=== PATIENT | male | born 1965 | race Caucasian/White ===

== ENCOUNTER 2016-05-04 11:05 | Emergency (ER) | payer OTHER ==
[~2016-05-04] VITALS: Ht 188 cm; Wt 113.6 kg
[2016-05-04 11:34] VITALS: BP 144/73; PULSE 97; RESP 18; O2SAT 98
--- NOTE | 2016-05-04 12:10 | ED.REPORT ---
HPI-Overdose/Alcohol Toxicity Date of Service May 04, 2016 ED Provider: Tommy Morgan MD 50 year old male with a history of alcoholism and HTN presents to the ER accompanied by his requesting assistance with alcohol rehabilitation. Last drink was about 1.5 hours prior to arrival in the department. Currently he drinks about 0.5 gallons of vodka daily. In the past week he admits to vomiting hellen blood, and black coffee grounds emesis. He has been vomiting today, but denies any presence of blood. Patient denies seizures with alcohol withdrawal, and any abuse of other substances. He recently had bariatric surgery. reports that she has contacted a treatment center in [place], [place] where family would like him to be placed, but they require medical clearance prior to admission. Nursing Notes Stated Complaint: SUBSTANCE ABUSE Chief Complaint: Substance Abuse Nursing Notes Reviewed: Yes Allergies: Coded Allergies: No Known Allergies (Unverified , 05/04/16) General Time Seen by Provider: 12:08 Chief Complaint Other (Alcohol Abuse) Hx Obtained From: Patient, Spouse Arrived By: Walk-in Associated with: Reports: Vomiting Related History: Reports: Alcoholism, Detox treatment Similar Sx Previous: Yes Risk-Overdose/Alcohol Tox )( Suicide Risk Stratification : Alcohol use RF Statements: Risk factors reviewed Past Medical History Past Medical History Heart murmur Reports: Hypertension, Denies: Diabetes mellitus Past Surgical History Reports: Back/neck surgery Smoking History Current Every Day Smoker Social History Alcohol Use: >5 per day Drug Use: Denies drug use Other Social History: Good social support, Ambulatory Status Independent Review of Systems Respiratory: Denies: Shortness of breath Cardiovascular: Denies: Chest pain GI: Reports: Hematemesis, Nausea, Vomiting, Denies: Bloody/tarry stool Neurologic: Reports: Shaking Complete sys rev & neg: except as marked. Physical Exam Initial Vital Signs Vital Signs (First) Date Time Temp Pulse Resp B/P Pulse Ox O2 Delivery O2 Flow Rate FiO2 05/04/16 11:34 36.4 97 18 144/73 98 Room Air Initial VS: Reviewed Head / Eyes: Atraumatic, Normocephalic Neck: Supple, Non-tender, Full range of motion Extremities: Vascular intact, Neuro intact, No swelling, No tenderness Skin: Warm, Dry, No cyanosis General/Constitutional: Awake, Alert, Well developed, Well nourished Smells of EtOH Respiratory / Chest: Atraumatic, Breath sounds NL, Breath sounds = bilat, No respiratory distress, No rales, No rhonchi, No wheezing Cardiovascular: Heart rate NL, Regular rhythm, Heart sounds NL, Cap refill not delayed, Peripheral circulation NL Abdomen: Atraumatic, Soft, No guarding, No rebound Tenderness/Guarding/Rebound: Positive: Tender diffuse Neurologic: Oriented X3, Speech NL, No motor deficits, No sensory deficits Psychiatric: Affect NL, Mood NL, Cognitive function NL, Thought content NL Interpretation & Diagnostics Lab Results Interpretation Result Diagram: 05/04/16 1255 05/04/16 1255 Test 05/04/16 12:00 05/04/16 12:55 Hold Urine Received (Received) White Blood Count 4.5th/mm3 (3.8-10.1) Red Blood Count 4.96mil/mm3 (4.40-5.80) Hemoglobin 16.4g/dL (13.8-17.2) Hematocrit 46.4% (41.0-50.0) Mean Corpuscular Volume 93.5fL (81-100) Mean Corpuscular Hemoglobin 33.1pg (27.0-35.0) Mean Corpuscular Hemoglobin Concent 35.3% (32.0-37.0) Red Cell Distribution Width 12.5% (12.3-15.4) Platelet Count 98bil/L (150-400) Neutrophils (%) (Auto) 49.9% (40-74) Lymphocytes (%) (Auto) 33.6% (14-46) Monocytes (%) (Auto) 13.4% (4-12) Eosinophils (%) (Auto) 2.0% (0-5) Basophils (%) (Auto) 0.9% (0-3) Prothrombin Time 9.9sec (8.1-12.5) Prothromb Time International Ratio 0.93ratio Sodium Level 137mEq/L (134-144) Potassium Level 3.8mEq/L (3.5-5.2) Chloride Level 94mEq/L (97-108) Carbon Dioxide Level 18mmol/L (18-29) Blood Urea Nitrogen 10mg/dL (6-24) Creatinine 0.56mg/dL (0.76-1.27) Estimat Glomerular Filtration Rate 164mL/min (>59) Glucose Level 130mg/dL (60-99) Calcium Level 9.1mg/dL (8.5-10.1) Total Bilirubin 1.1mg/dL (0.0-1.2) Aspartate Amino Transf (AST/SGOT) 211U/L (0-50) Alanine Aminotransferase (ALT/SGPT) 86U/L (0-44) Alkaline Phosphatase 85U/L (25-150) Total Protein 7.6g/dL (6.4-8.4) Albumin 4.6g/dL (3.4-5.0) Hold Heredia Top Tube Received (Received) Re-Eval/Medical Decision Med Decision/Clinical Course Awaiting chemical dependency evaluation here in the emergency department. Source of Hx: Old records Re-Evaluation/Progress #1: Time of Eval: 12:45 Re-Evaluation/Progress Note: Discussed plan of care with patient and . Re-Evaluation/Progress #2: Re-Evaluation/Progress Note: Discussed lab results and plan to discharge. Patient is amenable to the plan. Return precautions given. All other questions addressed. Counseled Regarding: Diagnosis, Lab results, Need for follow-up, When/why to return to ED Discharge & Departure Impression: Primary Impression: Alcohol abuse Additional Impression: Alcohol intoxication Complication of substance-induced condition: uncomplicated Qualified Code: F10.120 - Alcohol abuse with intoxication, uncomplicated )( Condition at Discharge: No danger to self, No danger to others, No suicidal ideation, No homicidal ideation Discharge Condition All VS Reviewed: Yes Condition: Stable Patient Instructions: Abuse of Alcohol (DC), Alcohol Withdrawal (DC) Care Transferred to: [facility] Transferred at: 15:06 Asif Attestation Portions of this note were transcribed by Aleksandar Aguilar. I, Dr. Morgan, personally performed the history, physical exam and medical decision-making; I reviewed and confirmed the accuracy of the information in the transcribed note. Signed by: Asif Cordoba, 05/04/2016 and 12:47 Tommy Morgan MD May 04, 2016 12:10 ALEKSANDAR AGUILAR May 04, 2016 12:12
[2016-05-04] MEDS ORDERED: LORazepam 2 mg Tablet PO ONE ×4 (12:45→21:35)
[2016-05-04 13:02] LABS: BASOPHILS % (AUTO) 0.9 % (0-3); MONOCYTES % (AUTO) 13.4 % (4-12); Mean Corpuscular Hemoglobin 33.1 pg (27.0-35.0); Mean Corpuscular Volume 93.5 fL (81-100); NEUTROPHILS % (AUTO) 49.9 % (40-74); Platelet Count 98 bil/L (150-400)
[2016-05-04 13:16] LABS: INR 0.93 ratio
[2016-05-04 18:59] VITALS: BP 152/80; PULSE 119; RESP 18; O2SAT 97
[2016-05-04 20:04] VITALS: BP 130/68; PULSE 104; RESP 18; O2SAT 94
[2016-05-04] MEDS ORDERED: _LORazepam 2 MG Tablet PO SCH (20:25)
[2016-05-04 21:35] VITALS: BP 144/84; PULSE 111; RESP 18; O2SAT 97
== END 2016-05-04 21:28 | disposition home or self-care (01) ==
LOC: SED 11:05
DX: F10.120 Alcohol abuse with intoxication, uncomplicated (principal); I10 Essential (primary) hypertension; F17.200 Nicotine dependence, unspecified, uncomplicated

== ENCOUNTER 2016-05-06 08:30 | Inpatient (IN) | payer OTHER ==
[~2016-05-06] VITALS: Ht 188 cm; Wt 100.0 kg
[2016-05-06] VITALS (9 sets, daily range): BP systolic 131–168; BP diastolic 66–86; PULSE 78–137; RESP 15–18; O2SAT 95–97
--- NOTE | 2016-05-06 08:57 | ED.REPORT ---
HPI-General Illness Date of Service May 06, 2016 ED Provider: Ambrosio Bowen MD The patient is a 50 year old male with history of hypertension and alcohol abuse , who presents to the emergency department from [facility] for high blood pressure. At this time he complains of anxiety, nausea, and diaphoresis. He also reports he has not been able to sleep the last few nights. He is currently at [facility] for alcohol detox. His last drink was 3 days ago before going to [facility] resp[facility]. His last dose of withdrawal medication was around 0500 this morning. His drinking started to get worse after his left him a few months ago. He has not been hospitalized in the past for alcohol withdrawal. Nursing Notes Stated Complaint: HIGH BP Chief Complaint: General Complaint Nursing Notes Reviewed: Yes (Compare And Share not reconciled) Allergies: Coded Allergies: No Known Allergies (Unverified , 05/04/16) Scheduled 5-Hydroxytryptophan (5-Htp) 50 Mg Capsule 50 MG PO DAILY Ferrous Sulfate, Dried (Iron) 159 Mg Tablet.er 159 MG PO DAILY Multivitamin (Multivitamins) 1 Each Capsule 1 EACH PO DAILY Potassium Gluconate (Potassium) 99 Mg Tablet 99 MG PO DAILY General Time Seen by MD: 08:54 Chief Complaint Other (high blood pressure) Hx Obtained From: Patient Arrived By: Walk-in Sudden in Onset?: Yes Onset Occurred: 1 - 4 hours ago Symptom Duration: Since onset Severity: Current: No pain currently Severity: Maximum: No pain Recent Healthcare: No recent hospitalization, Recent doctor visit Similar Sx Previous: Yes Past Medical History Past Medical History Notes: Patient seen May 04, 2016 in emergency department for detox from alcohol Past Medical History Heart murmur Hypertension Past Surgical History Stomach surgery Reports: Back/neck surgery Family History Noncontributory Smoking History Current Every Day Smoker Social History Currently at [facility] respite Alcohol Use: >5 per day Drug Use: Denies drug use Other Social History: Good social support, , Local resident Ambulatory Status Independent Review of Systems +high blood pressure Full Review of Systems GI: Reports: Nausea Skin: Reports Diaphoresis Psychiatric: Reports: Anxiety, Insomnia Complete sys rev & neg: except as marked. Physical Exam Vital Signs Vital Signs Date Time Temp Pulse Resp B/P Pulse Ox O2 Delivery O2 Flow Rate FiO2 05/06/16 10:45 103 15 145/71 96 Nasal Cannula 2 05/06/16 10:14 103 17 148/66 95 Nasal Cannula 2 05/06/16 08:34 36.4 137 18 168/86 97 Room Air Initial VS: Reviewed, Vital signs abnormal Head / Eyes: Atraumatic, Normocephalic, PERRL ENT: Mucous membranes moist, Conjunctiva normal, No scleral icterus Neck: Supple, Non-tender, Full range of motion Respiratory: Breath sounds normal, Clear to auscultation, No respiratory distress Abdomen / GI: Soft, Non-tender, No guarding, No rebound, No distention Lymphatic: No lymphadenopathy Extremities: Vascular intact, Neuro intact, No swelling, No tenderness Psychiatric: Mood/affect normal, Behavior normal, Normal thought content General/Constitutional: Awake, Alert, Cooperative answering questions, appears to be in significant withdrawal. Cardiovascular: Regular rhythm, Heart sounds NL, No murmurs, No rubs Profound tachycardia in the 130s Skin: Color NL, No rash Color / Condition: Positive: Diaphoresis present Neurologic: Oriented X3, Speech NL Tremulous Interpretation & Diagnostics Lab Results Interpretation Result Diagram: 05/06/16 0920 05/06/16 0920 Test 05/06/16 09:20 White Blood Count 4.7th/mm3 (3.8-10.1) Red Blood Count 4.59mil/mm3 (4.40-5.80) Hemoglobin 15.3g/dL (13.8-17.2) Hematocrit 43.2% (41.0-50.0) Mean Corpuscular Volume 94.1fL (81-100) Mean Corpuscular Hemoglobin 33.3pg (27.0-35.0) Mean Corpuscular Hemoglobin Concent 35.4% (32.0-37.0) Red Cell Distribution Width 12.3% (12.3-15.4) Platelet Count 81bil/L (150-400) Neutrophils (%) (Auto) 64.6% (40-74) Lymphocytes (%) (Auto) 17.1% (14-46) Monocytes (%) (Auto) 16.2% (4-12) Eosinophils (%) (Auto) 1.5% (0-5) Basophils (%) (Auto) 0.4% (0-3) Prothrombin Time 10.8sec (8.1-12.5) Prothromb Time International Ratio 1.01ratio Sodium Level 133mEq/L (134-144) Potassium Level 3.2mEq/L (3.5-5.2) Chloride Level 92mEq/L (97-108) Carbon Dioxide Level 19mmol/L (18-29) Blood Urea Nitrogen 15mg/dL (6-24) Creatinine 0.81mg/dL (0.76-1.27) Estimat Glomerular Filtration Rate 107mL/min (>59) Glucose Level 153mg/dL (60-99) Calcium Level 9.5mg/dL (8.5-10.1) Phosphorus Level 3.3mg/dL (2.5-4.9) Magnesium Level 1.6mg/dL (1.6-2.6) Iron Level 51ug/dL (35-150) Total Iron Binding Capacity 210ug/dL (250-450) Percent Iron Saturation 24%sat (15-50) Unsaturated Iron Binding 159.0ug/dL Ferritin 2361ng/mL (30-400) Total Bilirubin 1.6mg/dL (0.0-1.2) Aspartate Amino Transf (AST/SGOT) 260U/L (0-50) Alanine Aminotransferase (ALT/SGPT) 121U/L (0-44) Alkaline Phosphatase 83U/L (25-150) Total Protein 6.7g/dL (6.4-8.4) Albumin 4.1g/dL (3.4-5.0) Alcohols < 10mg/dL (0-10) Lab Results Interpretation: She thrombocytopenia from chronic alcoholism CMP mild K Lavenia Mild LFT abnormalities consistent with chronic alcoholism, total bili marginally increased from recent testing INR normal ECG Interpretation ECG Interpretation: Sinus tachycardia with a rate of 126 Q waves inferiorly LVH No prior EKG available for comparison Time: 09:01 Interpreted by: ED physician Re-Eval/Medical Decision Med Decision/Clinical Course This is a 50-year-old male who returns from crisis respite with initial concern for hypertension. The patient has a history of alcoholism, and has been drinking for years but has never been hospitalized. He reports marital issues that led to marked increase of drinking in recent months, and he said he should come get some help, and was placed on a lorazepam taper and sent to crisis after being seen and evaluated. Reports he has not slept, he appears anxious, is not have hypertension-family arrives to the emergency department he is tachycardic at 130, tremulous, mildly diaphoretic-although he is mentating. He appears to be in significant withdrawal, despite the lorazepam taper. An IV was placed and the patient received several doses of titrated IV diazepam- and is significantly improved. Given the severity of symptoms with profound tachycardia, and marked symptoms despite lorazepam taper, admission for further management of withdrawal is warranted. Assessment discussed the hospitalist's recommended a dose of phenobarbital 130 mg by mouth administered, so this is been added. Patient iss admitted in improved condition. Source of Hx: Old records Time of Eval: 10:45 Re-Evaluation/Progress Note: Discussed plan for admission with the patient. He understands and agrees with plan. All questions were addressed. Time of Eval: 10:56 Re-Evaluation/Progress Note: Hospitalist at bedside examining the patient. Consultation : Referral / Consult Name: Jacob Smith MD Consulted With: Hospitalist Call Returned at: 10:55 Sales And Leasing Agent: Will see patient, Agrees with eval, Agrees with plan, Accepts admit Differential Diagnosis: Negative: Abdominal pain, Acute coronary syndrome, Allergies, Diabetes mellitus, Drug dependence, Neutropenia Counseled Regarding: Diagnosis, Lab results, Need for admission Discharge & Departure Primary Impression: Alcohol withdrawal Complication of substance-induced condition: with unspecified complication Qualified Code: F10.239 - Alcohol dependence with withdrawal, unspecified Additional Impression: Thrombocytopenia Disposition: ADMITTED TO HOSPITAL Discharge Condition All VS Reviewed: Yes Condition: Stable Referrals: NOPCP (PCP) Mattieibelias Attestation Portions of this note were transcribed by Eula Salgado. I, Dr. Bowen personally performed the history, physical exam and medical decision-making; I reviewed and confirmed the accuracy of the information in the transcribed note. Signed by: Asif Mccrary, 05/06/2016 at 1115. Ambrosio Bowen MD May 06, 2016 08:56 Eula Salgado May 06, 2016 09:04
[2016-05-06 09:29] LABS: BASOPHILS % (AUTO) 0.4 % (0-3); EOSINOPHILS % (AUTO) 1.5 % (0-5); MONOCYTES % (AUTO) 16.2 % (4-12); Mean Corpuscular Hemoglobin 33.3 pg (27.0-35.0); Mean Corpuscular Volume 94.1 fL (81-100); NEUTROPHILS % (AUTO) 64.6 % (40-74); Platelet Count 81 bil/L (150-400)
[2016-05-06 09:45] LABS: INR 1.01 ratio
[2016-05-06] MEDS ORDERED: PHENobarbital 65 mg/mL Inj IV ONE (11:00)
[2016-05-06] MEDS ORDERED: Polyethylene Glycol (PEG) 17 Gm Powder PO PRN (11:05)
[2016-05-06] MEDS ORDERED: Alum-Mag Hydrox-Simeth 30 mL Suspension PO PRN (11:05)
[2016-05-06] MEDS ORDERED: Ondansetron 2 mg/mL 2 mL Inj IVPUSH PRN (11:05)
[2016-05-06] MEDS ORDERED: Thiamine Inj 100 MG, Folic Acid Inj 1 MG, Magnesium Sulfate 50% Inj 2 GM, Multivitamins... IV ONE ×5 (11:10)
[2016-05-06] MEDS ORDERED: Potassium Chloride 20 mEq SR Tablet PO ONE (11:55)
[2016-05-06] MEDS: Multivit-Miner-Folic Acid-Iron Tablet PO SCH (12:26)
[2016-05-06] MEDS: Pantoprazole 4 mg/mL 10 mL Inj IVPUSH SCH ×2 (12:26→22:03)
[2016-05-06 12:28] LABS: Magnesium 1.6 mg/dL (1.6-2.6); Phosphorus 3.3 mg/dL (2.5-4.9)
[2016-05-06] MEDS ORDERED: MULT1CAP33 PO (13:07)
[2016-05-06] MEDS ORDERED: 5-HY50CA2 PO (13:07)
[2016-05-06] MEDS ORDERED: FERR159T2 PO (13:08)
[2016-05-06] MEDS ORDERED: POTA99TA21 PO (13:08)
--- NOTE | 2016-05-06 15:54 | PCM.HPMED ---
Subjective Date of Service May 06, 2016 Primary Provider: Admitting Physician: Jacob Smith MD Primary Care Physician: Olivia Attending Physician: Jacob Smith MD Chief Complaint: High blood pressure History of Present Illness: Pleasant 50-year-old gentleman with a history of high blood pressure and alcohol abuse presented to the emergency department from crisis response for the complaint of high blood pressures. He is currently undergoing alcohol detoxification at [facility] resp[facility]. In the emergency department he complained of anxiety, nausea, and has been sweating. He has not been able to sleep last couple nights, and says that his last drink was 3 days before going to crisis respite, from which was after visiting our emergency department for acute alcohol intoxication and hematemesis. In the emergency department his blood pressure was found to be 168/86, heart rate of 137, 18 respirations per minute, 36.4C, satting 97% on room air. CBC remarkable for platelets of 81, CMP hyponatremia 133, hypokalemia 3.2, serum chloride 92, blood glucose 153, AST 260, ALT 121, ferritin 2361, TIBC 210 alcohol was not detectable EKG: Sinus tachycardia, rate 126, Q waves inferiorly, LVH. Patient remained tachycardic after receiving lorazepam taper, and received 130 mg of phenobarbital by mouth. Review of Systems: Gen: Has felt tired, sick, and shakey recently. Reports he is hungry. HEENT: worsening blurry vision and dull headaches every day for up to one week GI: Patient reports frequent vomiting is usual for him after the gastric sleeve surgery. He tries to eat frequent small meals, but some days does not eat at all. No change in color of emesis recently. Reports dark stools. Denies heartburn. Neuro: several months of dizziness, feeling like the room is spinning and losing focus, episodes of loss of consciousness, which tend to occur when he is climbing steps Psych: Worsening anxiety Allergies Coded Allergies: No Known Allergies (Unverified , 05/04/16) Home Medications Hypertension med, unknown - Stopped taking last spring Multiple supplements including a combo with 5HTP and [place] Wort, multivitamin, iron, calcium, Vit D, fish oil, alfalfa Tums or Rolaid occasionally PMH Hypertension diagnosed a few years ago, reports well controlled on medication Aortic valve problem diagnosed 3 years ago, reports worked up with EKG, ultrasound, and a CT or MRI Surgical History Varicose vein surgery 1 year ago Gastric sleeve 3 years ago in [facility] (no follow-up, fluctuating weight loss and gain) Fractured cervical vertebrae, surgery when 19yo and a revision surgery 4 years ago (described as a titanium cage) Right carpal tunnel surgery Family History Sister () leukemia and diabetes Father and mother are healthy Social History Hx Alcohol Use: Yes (whiskey or vodka 1/2 gallon every other day or more ) Alcoholic Drinks Per Day: last alcoholic drink 3 days ago. Hx Substance Use: No (marijuana "way back") Hx Tobacco Use: Yes Smoking Status: Current Every Day Smoker (4 cigarettes per day for 2yrs.) Living Arrangement: with Family Exam Vital Signs Vital Sign - Last Date Time Temp Pulse Resp B/P Pulse Ox O2 Delivery O2 Flow Rate FiO2 05/06/16 12:15 36.8 100 18 144/81 97 Room Air 05/06/16 10:45 2 Exam General: Laying in bed, no apparent distress. HEENT: Normocephalic, atraumatic, EOMI grossly, Cardiovascular: Regular rate and rhythm, 2/6 systolic murmur heard best at right upper sternal border, peripheral pulses 2/4 equal bilaterally Pulmonary: Clear to auscultation bilaterally, no W/R/R. Abdominal: Soft to palpation, bowel sounds present 4, no hepatosplenomegaly. Negative rebound. Extremities: No edema appreciated. No tenderness, asymmetry. Neuro: Neurologically grossly intact, strength is equal bilaterally upper and lower extremities. Cerebellar exam there is hesitation in a couple of messages with finger to nose MSK: able to move extremities on their own volition, strength 5 out of 5 equal bilaterally to upper and lower extremities. Lab and Diagnostics Result Diagram: 05/06/1691905/06/16919 12-lead ECG See HPI Assessment & Plan 50-year-old gentleman history of alcohol abuse, gastric sleeve, previous evaluation for hematemesis, presents 3 days after going to work crisis respite for alcohol withdraw found to have very high blood pressure this morning along with tachycardia, refractory to initial emergency room interventions. Acute ongoing Alcohol withdrawal, present on admission, active Half a liter of vodka daily for several months Last drink 3 days ago, has received thiamine and multivitamin in the emergency department Started on CIWA protocol Continue daily thiamine Acute on chronic Hypertension, present on admission, improving 168/86 on admission, possibly due to effects of withdrawal, and uncontrolled hypertension. If remains elevated following treatment with CIWA, consider labetalol to goal less than 140/90. Electrolyte dyscrasia, chronicity unknown, active Sodium 133, potassium 3.2, chloride 92. Replenish with normal saline and potassium Recheck with CMP in the morning Transaminitis, chronicity unknown, present on admission, evaluation ongoing Most likely due to chronic alcohol abuse Hepatitis panel If in remain elevated or worsen consider imaging Continue to monitor with treatment as above Elevated blood glucose, chronicity unknown, present on admission, evaluation ongoing Blood glucose 159 on admission, A1c evaluation Check fasting blood sugar in the morning, if diagnostic for diabetes will change diet to constant carb and consider insulin management Complaint of dark stools, present on admission active Fecal occult blood test Pain Evaluation: Adequate Pain Control GI Prophylaxis: Proton Pump Inhibitor VTE Prophylaxis: Sub-Q Enoxaparin Resuscitation Status: CPR: Attempt Resuscitation Attending Statement The patient was seen and examined together with Dr. Castillo on 05/06/2016 and I agree with the history, exam and plan as outlined in the note above. . Rajendra Sparks DO May 06, 2016 15:53 Jacob Smith MD May 07, 2016 19:37
[2016-05-06] MEDS: 0.9% NaCl + KCl 20 mEq/L 1,000 ML IV SCH (18:26)
[2016-05-06] MEDS ORDERED: Heparin 5,000 Unit/mL Inj SUBQ SCH (20:30)
[2016-05-07 03:02] VITALS: BP 139/76; PULSE 82; RESP 18; O2SAT 95
[2016-05-07] MEDS: 0.9% NaCl + KCl 20 mEq/L 1,000 ML IV SCH (03:29)
[2016-05-07 05:22] LABS: BASOPHILS % (AUTO) 0.2 % (0-3); EOSINOPHILS % (AUTO) 3.4 % (0-5); MONOCYTES % (AUTO) 12.7 % (4-12); Mean Corpuscular Hemoglobin 32.6 pg (27.0-35.0); Mean Corpuscular Volume 93.9 fL (81-100); NEUTROPHILS % (AUTO) 59.9 % (40-74); Platelet Count 79 bil/L (150-400)
[2016-05-07 05:41] LABS: Magnesium 2.1 mg/dL (1.6-2.6)
[2016-05-07 07:13] LABS: Transferrin 167 mg/dL (200-370); Vitamin B12 >1999 pg/mL (211-946)
[2016-05-07 07:54] VITALS: BP 144/81; PULSE 94; RESP 18; O2SAT 97
[2016-05-07 08:00] VITALS: PULSE 94
[2016-05-07] MEDS: Multivit-Miner-Folic Acid-Iron Tablet PO SCH (08:07)
[2016-05-07] MEDS: Pantoprazole 4 mg/mL 10 mL Inj IVPUSH SCH ×2 (08:07→19:39)
[2016-05-07] MEDS ORDERED: chlordiazePOXIDE 25 mg Capsule PO ONE (11:20)
[2016-05-07] MEDS ORDERED: Potassium Chloride 20 mEq SR Tablet PO ONE (11:25)
[2016-05-07 12:06] VITALS: BP 150/79; PULSE 91; RESP 20; O2SAT 99
[2016-05-07] MEDS: chlordiazePOXIDE 25 mg Capsule PO SCH ×2 (14:16→19:39)
--- NOTE | 2016-05-07 16:41 | PCM.PNMED ---
Subjective Date of Service May 07, 2016 Subjective Patient states he is doing well, has no complaints. He states he thinks he is good enough to go home. "I get up and run away if I was not attached to this alarm" She also scores overnight were greater than 8 and 9. He did not receive any diazepam, however he did request it. Later in the afternoon he became a little more agitated after receiving Librium in lieu of diazepam, CIWA score peaked to 20, and he was given 10 of diazepam. Patient smiled widely and asked for 20 mg. Exam Vital Signs Vital Sign - Last Date Time Temp Pulse Resp B/P Pulse Ox O2 Delivery O2 Flow Rate FiO2 05/07/16 12:06 91 20 150/79 99 Room Air 05/07/16 07:54 36.8 05/06/16 10:45 2 Intake and Output 05/06/16 05/06/16 05/07/16 Cumulative From/Thru 15:00 23:00 07:00 05/06/16 08:34 - 05/07/16 05:34 Intake Total 1475 ml 1635 ml 3110 ml Output Total 600 ml 500 ml 1100 ml Balance 875 ml 1135 ml 2010 ml Intake Oral 460 ml 550 ml 1010 ml IV Total 1015 ml 1085 ml 2100 ml Output Urine Total 600 ml 500 ml 1100 ml Exam General: Laying in bed, no apparent distress. HEENT: Normocephalic, atraumatic, EOMI grossly, Cardiovascular: Regular rate and rhythm, 2/6 systolic murmur heard best at right upper sternal border, peripheral pulses 2/4 equal bilaterally Pulmonary: Clear to auscultation bilaterally, no W/R/R. Abdominal: Soft to palpation, bowel sounds present 4, no hepatosplenomegaly. Negative rebound. Extremities: No edema appreciated. No tenderness, asymmetry. Neuro: Neurologically grossly intact, strength is equal bilaterally upper and lower extremities. Cerebellar exam there is hesitation in a couple of messages with finger to nose MSK: able to move extremities on their own volition, strength 5 out of 5 equal bilaterally to upper and lower extremities. Lab and Diagnostics Result Diagram: 05/07/16 0508 05/07/16 0508 12-lead ECG See HPI Assessment & Plan 50-year-old gentleman history of alcohol abuse, gastric sleeve, previous evaluation for hematemesis, presents 3 days after going to work [facility] for alcohol withdraw found to have very high blood pressure this morning along with tachycardia, refractory to initial emergency room interventions. Acute ongoing Alcohol withdrawal, present on admission, active Half a liter of vodka daily for several months Last drink 4 days ago, has received thiamine and multivitamin in the emergency department Continue on CIWA protocol Thiamine level returned greater than 1999, folate returned greater than 19.9. Discontinuing supplementation Patient remains on [place] Alarm and frequently needs redirection to stay in the bed.. Acute on chronic Hypertension, present on admission, improving 168/86 on admission, possibly due to effects of withdrawal, and uncontrolled hypertension. Systolic peaked at 150 mmHg, this coincided with increased CIWA score. If remains elevated following treatment with CIWA, consider labetalol to goal less than 140/90. Electrolyte dyscrasia, chronicity unknown, resolved Sodium 133, potassium 3.2, chloride 92.corrected to Sodium 137, potassium 3.5, chloride 100, Stop normal saline and potassium. Recheck with CMP in the morning Transaminitis, chronicity unknown, present on admission, improving Most likely due to chronic alcohol abuse liver enzymes: AST ALT 139 and 82 respectively decreased from 260 and 121 respectively. If in remain elevated or worsen consider imaging Continue to monitor with treatment as above Elevated blood glucose, chronicity unknown, present on admission, evaluation ongoing Blood glucose 159 on admission, fasting blood glucose 88 hemoglobin A1c 5.2 Complaint of dark stools, present on admission inactive Fecal occult blood test negative GI Prophylaxis: Proton Pump Inhibitor VTE Prophylaxis: Sub-Q Enoxaparin Resuscitation Status: CPR: Attempt Resuscitation Attending Statement The patient was seen and examined together with Dr. Sparks on 05/07/2016 and I agree with the history, exam and plan as outlined in the note above. . Rajendra Sparks DO May 07, 2016 16:41 Jacob Smiht MD May 07, 2016 19:39
[2016-05-07 19:32] VITALS: BP 157/89; PULSE 81; RESP 22; O2SAT 97
[2016-05-08] VITALS (7 sets, daily range): BP systolic 142–158; BP diastolic 78–99; PULSE 78–104; RESP 18–22; O2SAT 96–98
[2016-05-08] MEDS: chlordiazePOXIDE 25 mg Capsule PO SCH ×3 (05:29→16:49)
[2016-05-08 05:40] LABS: Mean Corpuscular Hemoglobin 32.5 pg (27.0-35.0)
[2016-05-08] MEDS: Multivit-Miner-Folic Acid-Iron Tablet PO SCH (08:10)
[2016-05-08] MEDS: Pantoprazole 4 mg/mL 10 mL Inj IVPUSH SCH (08:11)
[2016-05-08] MEDS ORDERED: chlordiazePOXIDE 25 mg Capsule PO ONE (12:20)
[2016-05-08] MEDS ORDERED: CHLO25CA10 PO (15:49)
--- NOTE | 2016-05-08 16:00 | PCM.DIMED ---
Rajendra Sparks DO 05/08/16 1600: Discharge Instructions Date of Service May 08, 2016 Dates of Hospitalization May 06, 2016 at 11:10 am Discharge Diagnosis Discharge Diagnosis 1. Acute ongoing Alcohol withdrawal 2. Acute on chronic Hypertension 3. Electrolyte dyscrasia 4. Transaminitis 5. Elevated blood glucose Medication Instructions Chlordiazepoxide 25 mg (1 pill) 4 times a day by mouth as needed for withdrawal symptoms. -Do not consume alcohol with this medication, do not take more than prescribed. -Please take 1 pill at least 6 hours apart, only as needed for withdrawal symptoms. The purpose of this medication is to taper over time, the goal being using fewer pills farther apart. If you find you are using 1 pill every 6 hours this is problematic and you will need to speak to your primary care doctor about this. Please see patient instructions. This medication is to be in the possession and dispensed by patient's . Diet Heart Healthy Activity No restrictions Call your provider Fever or Chills, Shortness of breath, Bleeding, Chest pain, Vomitting, Excessive diarrhea, Weakness (unilateral) Patient Instructions Please take chlordiazepoxide as prescribed above. Do not consume any alcohol as the above medication as prescribed to help you with your to withdraw. Please contact inpatient treatment facility in request to be placed on admission list if you have not done so already Please follow-up with the residency clinic next week. It is located at [address] [place] [address]. Phone number: [phone], please ask for a hospital follow-up appointment. If you expense any chest pain, shortness of breath, lightheadedness, dizziness please consider going to the emergency department or call 911 if necessary. If you begin to experience worsening withdrawal symptoms that are not relieved with a single pill of chlordiazepoxide, go to urgent care or the emergency department if necessary. Follow-up Provider: [facility] Follow-up with PCP in: 1 week Jacob Smith MD 05/09/16 0808: Discharge Instructions Attending's Statement The patient was seen and examined together with Dr. Sparks on 05/08/2016 and I agree with the history, exam and plan as outlined in the note above. . Rajendra Sparks DO May 08, 2016 16:00 Jacob Smith MD May 09, 2016 08:08
--- NOTE | 2016-05-08 20:27 | PCM.DC.MED ---
Discharge Summary Date of Service May 08, 2016 Dates of Hospitalization Date of Hospital Admission May 06, 2016 at 11:10 Date of Discharge: May 08, 2016 Providers: Admitting Physician: Jacob Smith MD Primary Care Physician: Nopcp Attending Physician: Jacob Smith MD Diagnosis at Time of Discharge Diagnosis at Time of Discharge 1. Acute ongoing Alcohol withdrawal 2. Acute on chronic Hypertension 3. Electrolyte dyscrasia 4. Transaminitis 5. Elevated blood glucose Procedures ECG 12 Lead Sinus tachycardia, heart rate 126, IL interval 159, normal axis, "nonspecific intraventricular conduction delay, possible inferior infarct, old. Borderline report of normality, lateral leads." Brief History Pleasant 50-year-old gentleman with a history of high blood pressure and alcohol abuse presented to the emergency department from crisis response for the complaint of high blood pressures. He is currently undergoing alcohol detoxification at [facility]. In the emergency department he complained of anxiety, nausea, and has been sweating. He has not been able to sleep last couple nights, and says that his last drink was 3 days before going to [facility], from which was after visiting our emergency department for acute alcohol intoxication and hematemesis. In the emergency department his blood pressure was found to be 168/86, heart rate of 137, 18 respirations per minute, 36.4C, satting 97% on room air. CBC remarkable for platelets of 81, CMP hyponatremia 133, hypokalemia 3.2, serum chloride 92, blood glucose 153, AST 260, ALT 121, ferritin 2361, TIBC 210 alcohol was not detectable EKG: Sinus tachycardia, rate 126, Q waves inferiorly, LVH. Patient remained tachycardic after receiving lorazepam taper, and received 130 mg of phenobarbital by mouth. Hospital Course Sylvester Bonilla is a 50-year-old gentleman with a history of alcohol dependance, gastric sleeve, and previous evaluation for hematemesis. He presents [facility] and found to have very high blood pressure this morning along with tachycardia. Seen in the emergency room and symptoms were refractory to initial treatment. He was admitted for hypertension, tachycardia, and acute alcohol withdrawal. #1 Acute ongoing Alcohol withdrawal, present on admission.Last drink 5 days ago. Active -Half a liter of vodka daily for several months -Received thiamine and multivitamin in the emergency department -Was treated on CIWA protocol throughout hospitalization, on last day chlordiazepoxide substituted for diazepam which patient tolerated. -CIWA scores ranged from 2-20 throughout hospitalization. 10 and 13 on day of discharge. -Thiamine appointment levels repleted. Supplementation discontinued. -Patient remained on [place] alarm bed, required multiple redirections from getting out of bed while unsteady on his feet. -Pending discharge, patient left the hospital with IV in place. He was contacted by his and instructed to return to his hospital room. #2 Acute on chronic Hypertension, present on admission. Stable. -168/86 on admission, possibly due to effects of withdrawal, and uncontrolled hypertension. -Highest blood pressure reading throughout admission was 158/99 mmHg. -Patient was still having withdrawal discomforts on day of admission. [place] it was best interest of patient to have high blood pressure evaluated and treatment initiated by primary care physician. #3 Hyponatremia, chronicity unknown. Resolved -Treated with normal saline with 20 mEq potassium IV; values returned to normal remained stable. #4 Hypokalemia present on admission, chronicity unknown. Resolved -Treated as above #3 #5 Hypochloremia present on admission, chronicity unknown. Rresolved -Treated as above #3 #6 Transaminitis, chronicity unknown, present on admission, improving -Most likely due to chronic alcohol abuse -liver enzymes: Decreased throughout hospitalization. -Recommend follow-up as outpatient #7 Elevated blood glucose, chronicity unknown, present on admission. Resolved. Hemoglobin A1c returned as normal. Patient was admitted for hypertension and tachycardia while going through acute alcohol withdrawal. Treatment of his withdrawal symptoms correlated with decrease in blood pressure, therefore ultimately it was felt his high blood pressure should be evaluated and treated at a time following resolution of withdrawal symptoms. At time of discharge patient was eager to leave the hospital, he stated he was motivated to continue inpatient treatment at a detoxification facility. Patient was discharged with prescription for chlordiazepoxide 25 mg #16 pills to be taken in the interim between discharge and admission to another facility. formerly [facility] scheduling department was called and requested an appointment next week with the residency clinic. Exam Vital Signs (Last) Date Time Temp Pulse Resp B/P Pulse Ox O2 Delivery O2 Flow Rate FiO2 05/08/16 14:42 90 18 96 Room Air 05/08/16 14:12 36.3 148/78 05/06/16 10:45 2 Exam General: Laying in bed, no apparent distress. HEENT: Normocephalic, atraumatic, EOMI grossly, Cardiovascular: Regular rate and rhythm, 2/6 systolic murmur heard best at right upper sternal border, peripheral pulses 2/4 equal bilaterally Pulmonary: Clear to auscultation bilaterally, no W/R/R. Abdominal: Soft to palpation, bowel sounds present 4, no hepatosplenomegaly. Negative rebound. Extremities: No edema appreciated. No tenderness, asymmetry. Neuro: Neurologically grossly intact, strength is equal bilaterally upper and lower extremities. Cerebellar exam there is hesitation in a couple of messages with finger to nose MSK: Gait is normal, able to move extremities on his own volition, strength 5 out of 5 equal bilaterally to upper and lower extremities. Test 05/06/16 09:20 05/07/16 05:08 05/08/16 05:20 Prothrombin Time 10.8sec (8.1-12.5) Prothromb Time International Ratio 1.01ratio Hemoglobin A1c 5.2% (4.8-5.6) Phosphorus Level 3.3mg/dL (2.5-4.9) Iron Level 51ug/dL (35-150) Total Iron Binding Capacity 210ug/dL (250-450) Percent Iron Saturation 24%sat (15-50) Unsaturated Iron Binding 159.0ug/dL Transferrin 167mg/dL (200-370) Ferritin 2361ng/mL (30-400) Vitamin B12 Level >1999pg/mL (211-946) Folate > 19.9ng/mL (>3.0) Alcohols < 10mg/dL (0-10) Neutrophils (%) (Auto) 59.9% (40-74) Lymphocytes (%) (Auto) 23.4% (14-46) Monocytes (%) (Auto) 12.7% (4-12) Eosinophils (%) (Auto) 3.4% (0-5) Basophils (%) (Auto) 0.2% (0-3) Magnesium Level 2.1mg/dL (1.6-2.6) White Blood Count 4.7th/mm3 (3.8-10.1) Red Blood Count 4.65mil/mm3 (4.40-5.80) Hemoglobin 15.1g/dL (13.8-17.2) Hematocrit 43.7% (41.0-50.0) Mean Corpuscular Volume 94.0fL (81-100) Mean Corpuscular Hemoglobin 32.5pg (27.0-35.0) Mean Corpuscular Hemoglobin Concent 34.6% (32.0-37.0) Red Cell Distribution Width 12.4% (12.3-15.4) Platelet Count 100bil/L (150-400) Sodium Level 139mEq/L (134-144) Potassium Level 4.0mEq/L (3.5-5.2) Chloride Level 101mEq/L (97-108) Carbon Dioxide Level 24mmol/L (18-29) Blood Urea Nitrogen 8mg/dL (6-24) Creatinine 0.73mg/dL (0.76-1.27) Estimat Glomerular Filtration Rate 121mL/min (>59) Glucose Level 145mg/dL (60-99) Calcium Level 9.5mg/dL (8.5-10.1) Total Bilirubin 1.1mg/dL (0.0-1.2) Aspartate Amino Transf (AST/SGOT) 86U/L (0-50) Alanine Aminotransferase (ALT/SGPT) 69U/L (0-44) Alkaline Phosphatase 71U/L (25-150) Total Protein 6.5g/dL (6.4-8.4) Albumin 3.8g/dL (3.4-5.0) Hepatitis C Comment . Discharge Medications Discharge Medications 5-Hydroxytryptophan (5-Htp) 50 Mg Capsule 50 MG PO DAILY (Reported) Chlordiazepoxide (Chlordiazepoxide) 25 Mg Capsule 25 MG PO QID Prescribed by: TOMI CHAPA DO Ferrous Sulfate, Dried (Iron) 159 Mg Tablet.er 159 MG PO DAILY (Reported) Multivitamin (Multivitamins) 1 Each Capsule 1 EACH PO DAILY (Reported) Potassium Gluconate (Potassium) 99 Mg Tablet 99 MG PO DAILY (Reported) Additional med instructions Chlordiazepoxide 25 mg (1 pill) 4 times a day by mouth as needed for withdrawal symptoms. -Do not consume alcohol with this medication, do not take more than prescribed. -Please take 1 pill at least 6 hours apart, only as needed for withdrawal symptoms. The purpose of this medication is to taper over time, the goal being using fewer pills farther apart. If you find you are using 1 pill every 6 hours this is problematic and you will need to speak to your primary care doctor about this. Please see patient instructions. This medication is to be in the possession and dispensed by patient's . Followup Plan Disposition: Patient was able to ambulate off the floor on his own volition. He was discharged home with the care of his with strict return instructions to return to the ER for worsening or uncontrolled withdrawal symptoms. He is to follow-up at the residency clinic, they are to call on Tuesday for scheduling. Discharge Diet: Heart Healthy Discharge Activity: No restrictions Patient Instructions Please take chlordiazepoxide as prescribed above. Do not consume any alcohol as the above medication as prescribed to help you with your to withdraw. Please contact inpatient treatment facility in request to be placed on admission list if you have not done so already Please follow-up with the residency clinic next week. It is located at [address] [place] [address]. Phone number: [phone], please ask for a hospital follow-up appointment. If you expense any chest pain, shortness of breath, lightheadedness, dizziness please consider going to the emergency department or call 911 if necessary. If you begin to experience worsening withdrawal symptoms that are not relieved with a single pill of chlordiazepoxide, go to urgent care or the emergency department if necessary. Follow-up Provider: [facility] Follow-up with PCP in: 1 week Time spent Greater than 30 minutes was spent in preparation of discharge with greater than 50% of that time dedicated to patient counseling and coordination of care. . Attending Statement The patient was seen and examined together with Dr. Sparks on 05/08/2016 and I agree with the history, exam and plan as outlined in the note above. . copies to: [facility] Tomi Sparks DO May 08, 2016 20:27 Jacob Smith MD May 09, 2016 08:09
[2016-05-09 06:09] LABS: Hepatitis A Antibody IgM Negative (Negative); Hepatitis B Core Antibody IgM Negative (Negative)
== END 2016-05-08 17:36 | disposition home or self-care (01) | DRG 897 ==
LOC: SED 08:30 → PCC 11:10
PROVIDERS: ADMIT Internal Medicine; ATTEND Internal Medicine
DX: F10.239 Alcohol dependence with withdrawal, unspecified (principal); E87.1 Hypo-osmolality and hyponatremia; E87.8 Other disorders of electrolyte and fluid balance, not elsewhere classified; I10 Essential (primary) hypertension; F17.210 Nicotine dependence, cigarettes, uncomplicated; R74.0 Nonspecific elevation of levels of transaminase and lactic acid dehydrogenase [LDH]; R73.9 Hyperglycemia, unspecified; E87.6 Hypokalemia